=== PATIENT | female | born 1980 | race Caucasian/White ===

== ENCOUNTER 2020-09-27 13:44 | Outpatient (REF) | payer MEDICAID, SELFPAY ==
--- NOTE | 2020-09-27 14:15 | XR_ITS ---
EXAMINATION: LUMBAR SPINE X-RAY CLINICAL INFORMATION: Low back pain and left-sided sciatica COMPARISON: None TECHNIQUE: 3 views of the lumbar spine FINDINGS: Bone alignment is normal. No fracture or dislocation is seen. Disc spaces are normal. There are surgical clips in the pelvis. XR/XR lumbar spine 2-3V IMPRESSION: Unremarkable exam. EXAMINATION: Right knee x-ray CLINICAL INFORMATION: Pain COMPARISON: None. TECHNIQUE: 4 views of the right knee FINDINGS: Bone alignment is normal. No fracture or dislocation is seen. Joint spaces are normal. There is no joint effusion. IMPRESSION: Unremarkable exam.
--- NOTE | 2020-09-27 14:15 | XR_ITS ---
EXAMINATION: LUMBAR SPINE X-RAY CLINICAL INFORMATION: Low back pain and left-sided sciatica COMPARISON: None TECHNIQUE: 3 views of the lumbar spine FINDINGS: Bone alignment is normal. No fracture or dislocation is seen. Disc spaces are normal. There are surgical clips in the pelvis. XR/XR knee RT 4V IMPRESSION: Unremarkable exam. EXAMINATION: Right knee x-ray CLINICAL INFORMATION: Pain COMPARISON: None. TECHNIQUE: 4 views of the right knee FINDINGS: Bone alignment is normal. No fracture or dislocation is seen. Joint spaces are normal. There is no joint effusion. IMPRESSION: Unremarkable exam.
[2020-09-27 14:29] LABS: MANUAL DIFF FLAG NO
[2020-09-27 14:48] LABS: Estimated Average Glucose 94 mg/dL; Hemoglobin A1c % 4.9 %
[2020-09-27 15:00] LABS: Alanine Aminotransferase 20 U/L (0-31); Albumin Level 4.5 g/dL (3.5-5.0); Alkaline Phosphatase 71 U/L (39-117); Anion Gap 11 (12-20); Aspartate Amino Transferase 19 U/L (5-31); Bilirubin Direct 0.2 mg/dL (0.0-0.5); Bilirubin Total 0.5 mg/dL (0.0-1.0); Blood Urea Nitrogen 8 mg/dL (9-16); Calcium 9.4 mg/dL (8.4-10.2); Carbon Dioxide 28 mmol/L (22-29); Chloride 103 mmol/L (96-108); Cholesterol 181 mg/dL; Estimated Glomerular Filt Rate > 60; Glucose Random 88 mg/dL (60-115); HDL Cholesterol 57 mg/dL; LDL Cholesterol Calculated 108 mg/dl; Sodium 138 mmol/L (135-145); Total Protein 7.3 g/dL (6.5-8.0); Triglycerides 80 mg/dL
[2020-09-27 16:39] LABS: Basophils Absolute Auto 0.1 X10*3/uL (0.0-0.2); Basophils Percent Auto 0.9 % (0-2); Eosinophils Absolute Auto 0.1 X10*3/uL (0.0-0.4); Eosinophils Percent Auto 1.7 % (0-4); Hematocrit 41.8 % (37-47); Hemoglobin 13.5 g/dl (12.0-16.0); Imm Gran Abs Auto 0.02 X10*3/uL (0.00-0.03); Imm Gran Pct Auto 0.2 % (0.0-0.4); Lymphocytes Absolute Auto 2.7 X10*3/uL (1.2-4.9); Lymphocytes Percent Auto 33.1 % (20-40); Mean Corpuscular HGB Conc 32.3 g/dl (31.0-35.0); Mean Corpuscular Hemoglobin 27.8 pg (27.0-33.0); Mean Platelet Volume 9.2 fL (9.4-12.3); Monocytes Absolute Auto 0.5 X10*3/uL (0.1-1.2); Monocytes Percent Auto 5.8 % (2-11); Neutrophils Absolute Auto 4.7 X10*3/uL (2.0-8.3); Neutrophils Percent Auto 58.3 % (45-73); Platelet Count 383 X10*3/uL (160-400); Red Blood Count 4.86 X10*6/uL (4.20-5.50); Red Cell Distribution Width 14.1 % (11.0-16.0); White Blood Count 8.1 X10*3/uL (4.8-10.8)
[2020-09-28 07:47] LABS: Syphilis Screen Nonreactive (Nonreactive)
[2020-09-28 08:22] LABS: ~HepC Num1 0.06 S/CO (0.00-0.79); ~Hepatitis C Antibody Nonreactive (Nonreactive)
[2020-09-28 09:20] LABS: HBsAGNum1 0.19 S/CO (0.00-0.99); Hepatitis B Surface Antigen Negative (Negative)
[2020-09-28 09:26] LABS: HBS Num1 0.19 mIU/mL (0-7.99); HBc Num1 0.05 S/CO (0.00-0.79); HIV AB/AG Nonreactive (Nonreactive); HIV Num 1 0.23 S/CO (0.00-0.99); Hepatitis B Core Antibody Nonreactive (Nonreactive); ~Hepatitis B Surface Antibody NONREACTIVE (Nonreactive)
[2020-09-28 14:17] LABS: N. gonorrhoeae RNA TMA NOT DETECTED (NOT DETECTED)
[2020-09-29 15:14] LABS: C. trachomatis RNA TMA NOT DETECTED (NOT DETECTED)
== END 2020-09-27 13:45 | disposition home or self-care (01) ==
LOC: HO.LAB 13:44
PROVIDERS: PCP Internal Medicine; Visit Provider Internal Medicine
DX: M25.561 Pain in right knee (principal); M54.42 Lumbago with sciatica, left side
CPT/HCPCS: 36415; 72100; 73564; 80048; 80061; 80076; 83036; 85025; 86704; 86706; 86780; 86803; 87340; 87389; 87491; 87591